=== PATIENT | female | born 1960 | race Two or more races ===

== ENCOUNTER → 2017-04-09 | Outpatient (CLI) | payer OTHER ==
[~2017-04-09] MED LIST: DULO60CA6 PO; HYDR25TA6 PO
--- NOTE | 2017-04-09 21:38 | RADRPT ---
PROCEDURE: XR Knees. CLINICAL INDICATION: Bilateral knee pain. TECHNIQUE: Total of eight views. Weightbearing frontal, oblique, and lateral views of the both kn ees. Patellar views of both knees. COMPARISON: No prior study is available for comparison. FINDINGS: There is no fracture or dislocation. The soft tissues are normal. There are degenerative changes with osteophytes arising from all 3 joint compartment margins bilater ally. There is bilateral medial joint compartment narrowing. There is no lytic or blastic lesion. There is no radiopaque foreign body. IMPRESSION: 1. Moderate degenerative changes of both knees predominately involving the medial joint compartment s. 2. Otherwise unremarkable study. RPTAT: QQ .Jorge Hendricks MD, MD Date Time Electronically viewed and signed by .Jorge Hendricks MD, on 04/09/2017 21:37 .R/
--- NOTE | 2017-04-10 07:49 | HKNOTE ---
DATE OF SERVICE: 04/09/2017 CHIEF COMPLAINT: Left knee pain. HISTORY OF PRESENT ILLNESS: This is a 56-year-old female complains of chronic left knee pain. She has occasional locking and instability of her knee. She uses a brace occasionally. She does not ta ke any pain medications. She has not had any previous physical therapy. She denies any groin or ba ck pain. She states that the pain is mostly on the inside of the knee. It is sharp. She denies an y history of trauma. She has no other complaints. GAIT: Nonantalgic gait, reciprocal gait pattern. LEFT KNEE EXAMINATION: Neutral alignment. Tender over the medial joint line, nontender over the la teral joint line, 0 to 120 degrees range of motion, stable to varus valgus stress, negative Anai, negative anterior drawer, negative posterior drawer. Positive Jaimie's medially. MOTOR STRENGTH: 5/5 hamstrings, quadriceps, tibialis anterior, gastrocsoleus. X-RAYS LEFT KNEE: 3 views of left knee demonstrate medial joint space narrowing as well as patellof emoral joint narrowing. There is subchondral sclerosis. No fractures or dislocations. MRI LEFT KNEE: There is a complex tear of the posterior horn of the medial meniscus. There is a Ba ker's cyst. The cruciate and collateral ligaments are intact. IMPRESSION: A 56-year-old female with a left knee posterior horn medial meniscus tear. PLAN: We will request authorization for outpatient physical therapy. She can take ibuprofen as nee ded. She can use a brace as needed. She will follow up following her physical therapy. Dictated By: JOANNA CORRAL/ISMAEL Conf#: [id number] DID#: [id number]
== END | disposition home or self-care (01) ==
LOC: HKI 10:37
PROVIDERS: ATTEND Orthopaedic Surgery Adult Reconstructive Orthopaedic Surgery
DX: M23.222 Derangement of posterior horn of medial meniscus due to old tear or injury, left knee (principal); M71.22 Synovial cyst of popliteal space [Baker], left knee
CPT/HCPCS: 73564; Z7500; G0463